=== PATIENT | female | born 1940 | race American Indian/Alaskan Native ===

== ENCOUNTER 2017-11-19 05:17 | Emergency (ER) | payer MEDICARE ==
[2017-11-19 06:55] LABS: Hematocrit 30.7 % (30.3-42.9); Mean Corpuscular HGB Conc 33 % (30-34); Mean Corpuscular Hemoglobin 28 pg (28-32); Mean Corpuscular Volume 87 fl (79-97); Platelet Count 182 K/mm3 (140-440); Red Blood Count 3.53 M/mm3 (3.65-5.03); Red Cell Distribution Width 17.5 % (13.2-15.2)
[2017-11-19 07:10] LABS: BUN/Creatinine Ratio 15; Blood Urea Nitrogen 15 mg/dL (7-17); Calcium 9.4 mg/dL (8.4-10.2); Hemolysis Index 47
[2017-11-19] MEDS ORDERED: KEPPRA PO ONE (07:22)
[2017-11-19] MEDS ORDERED: ATIVAN IM PRN (07:29)
--- NOTE | 2017-11-19 07:30 | Emergency Department Report ---
ED General Adult HPI - General Chief complaint: Seizure Stated complaint: SEIZURE Time Seen by Provider: 11/19/17 06:50 Source: patient, EMS (ems notes not available at time of chart dictation), RN notes reviewed, old records reviewed Mode of arrival: Stretcher Limitations: Other (patient disorganized. Patient is a poor historian.) - History of Present Illness Initial comments: This is a 77-year-old female. The patient is not known to this provider previously. 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 Patient is sent to the ER today from her local psychiatric facility for evaluation of a possible seizure. As per enclosed documentation, patient was standing in the doorway, and she was witnessed to fall back on the wall, hitting the back of her head. Patient was also noticed to be shaking uncontrollably. It is also documented that during this event the patient stated "I have seizures." Patient was given Ativan 1 mg 1, and was sent to the ER for evaluation for possible seizures. The patient is a very poor historian, and has no recollection of the events, she cannot describe exacerbating or relieving factors. Of note, patient had a prolonged stay in this hospital recently, and had prolonged observation. Please see her most recent discharge summary, and her progress notes from her recent hospitalization. The patient currently denies headache, neck pain, chest pain, abdominal pain, shortness of breath, urinary symptoms. She denies muscular weakness. She is very disorganized, and can therefore not describe radiation, exacerbating or relieving factors. -: Sudden Severity scale (0 -10): 0 Quality: other Consistency: other Improves with: other Worsens with: other Associated Symptoms: seizure, other - Related Data Home Medications Medication Instructions Recorded Confirmed Last Taken Amlodipine Besylate [Norvasc] 5 mg PO QAM 11/10/17 11/19/17 1 Day Ago ~11/18/17 Atorvastatin Calcium [Lipitor] 20 mg PO HS 11/10/17 11/19/17 1 Day Ago ~11/18/17 Meloxicam [Mobic] 15 mg PO QAM 11/10/17 11/19/17 1 Day Ago ~11/18/17 Pantoprazole [Protonix TAB] 20 mg PO QDAY 11/10/17 11/19/17 1 Day Ago ~11/18/17 risperiDONE [RisperDAL] 1 mg PO BID 11/10/17 11/19/17 1 Day Ago ~11/18/17 OLANZapine [Zyprexa] 5 mg PO QHS 11/19/17 11/19/17 Unknown clonazePAM [Klonopin] 1 mg PO BID 11/19/17 11/19/17 1 Day Ago ~11/18/17 levETIRAcetam [Keppra TAB] 750 mg PO BID 11/19/17 11/19/17 1 Day Ago ~11/18/17 Allergies Allergy/AdvReac Type Severity Reaction Status Date / Time Penicillins Allergy Unknown Verified 11/10/17 10:51 ED Review of Systems ROS: Stated complaint: SEIZURE Other details as noted in HPI Comment: Unobtainable due to pts medical conditions (the patient is a poor historian) ED Past Medical Hx - Past Medical History Hx Hypertension: Yes Hx GERD: Yes Hx Seizures: Yes Hx Psychiatric Treatment: Yes Additional medical history: High Cholesterol - Social History Smoking Status: Never Smoker Substance Use Type: None - Medications Home Medications: Home Medications Medication Instructions Recorded Confirmed Last Taken Type Amlodipine Besylate [Norvasc] 5 mg PO QAM 11/10/17 11/19/17 1 Day Ago History ~11/18/17 Atorvastatin Calcium [Lipitor] 20 mg PO HS 11/10/17 11/19/17 1 Day Ago History ~11/18/17 Meloxicam [Mobic] 15 mg PO QAM 11/10/17 11/19/17 1 Day Ago History ~11/18/17 Pantoprazole [Protonix TAB] 20 mg PO QDAY 11/10/17 11/19/17 1 Day Ago History ~11/18/17 risperiDONE [RisperDAL] 1 mg PO BID 11/10/17 11/19/17 1 Day Ago History ~11/18/17 OLANZapine [Zyprexa] 5 mg PO QHS 11/19/17 11/19/17 Unknown History clonazePAM [Klonopin] 1 mg PO BID 11/19/17 11/19/17 1 Day Ago History ~11/18/17 levETIRAcetam [Keppra TAB] 750 mg PO BID 11/19/17 11/19/17 1 Day Ago History ~11/18/17 ED Physical Exam - General Limitations: Other (psychiatrically disorganized) General appearance: alert, in no apparent distress - Head Head exam: Present: atraumatic, normocephalic - Eye Eye exam: Present: EOMI. Absent: normal appearance (bilateral arcus seniilis) - ENT ENT exam: Present: normal exam, normal orophraynx, mucous membranes moist, normal external ear exam - Neck Neck exam: Present: normal inspection, full ROM - Respiratory Respiratory exam: Present: normal lung sounds bilaterally. Absent: respiratory distress - Cardiovascular Cardiovascular Exam: Present: regular rate, normal rhythm, normal heart sounds. Absent: bradycardia, tachycardia, irregular rhythm, systolic murmur, diastolic murmur, rubs, gallop - GI/Abdominal GI/Abdominal exam: Present: soft. Absent: distended, tenderness, guarding, rebound, rigid, pulsatile mass - Extremities Exam Extremities exam: Present: normal inspection, full ROM, normal capillary refill , other (2+ pulses noted in the bilateral upper, lower extremities. Compartments soft. No long bony tenderness. The pelvis is stable.). Absent: tenderness, pedal edema, joint swelling, calf tenderness - Back Exam Back exam: Present: normal inspection, full ROM. Absent: tenderness, CVA tenderness (R), paraspinal tenderness, vertebral tenderness - Neurological Exam Neurological exam: Present: alert, CN II-XII intact, normal gait, other ( Extraocular movements intact. Tongue midline. No facial droop. Facial sensation intact to light touch in the V1, V2, V3 distribution bilaterally. 5 and 5 strength in 4 extremities.. Sensation is intact to light touch in 4 extremities.). Absent: motor sensory deficit - Psychiatric Psychiatric exam: Present: anxious - Skin Skin exam: Present: warm, dry, intact, normal color. Absent: rash ED Course Vital Signs 11/19/17 11/19/17 11/19/17 05:51 07:16 09:22 Temperature 98.3 F Pulse Rate 79 71 Respiratory 16 16 18 Rate Blood Pressure 135/91 160/70 [Left] O2 Sat by Pulse 96 98 100 Oximetry ED Medical Decision Making - Lab Data Result diagrams: 11/19/17 06:28 11/19/17 06:28 Vital Signs 11/19/17 11/19/17 11/19/17 05:51 07:16 09:22 Temperature 98.3 F Pulse Rate 79 71 Respiratory 16 16 18 Rate Blood Pressure 135/91 160/70 [Left] O2 Sat by Pulse 96 98 100 Oximetry Lab Results 11/19/17 11/19/17 11/19/17 Range/Units 06:28 06:28 06:55 WBC 3.6 L (4.5-11.0) K/mm3 RBC 3.53 L (3.65-5.03) M/mm3 Hgb 10.0 L (10.1-14.3) gm/dl Hct 30.7 (30.3-42.9) % MCV 87 (79-97) fl MCH 28 (28-32) pg MCHC 33 (30-34) % RDW 17.5 H (13.2-15.2) % Plt Count 182 (140-440) K/mm3 Sodium 136 L (137-145) mmol/L Potassium 4.8 (3.6-5.0) mmol/L Chloride 98.5 (98-107) mmol/L Carbon Dioxide 24 (22-30) mmol/L Anion Gap 18 mmol/L BUN 15 (7-17) mg/dL Creatinine 1.0 (0.7-1.2) mg/dL Estimated GFR > 60 ml/min BUN/Creatinine Ratio 15 % Glucose 80 (65-100) mg/dL Calcium 9.4 (8.4-10.2) mg/dL Total Creatine Kinase (30-135) units/L Urine Color Straw (Yellow) Urine Turbidity Clear (Clear) Urine pH 7.0 (5.0-7.0) Ur Specific [place] 1.006 (1.003-1.030) Urine Protein <15 mg/dl (Negative) mg/dL Urine Glucose (UA) Neg (Negative) mg/dL Urine Ketones Neg (Negative) mg/dL Urine Blood Sm (Negative) Urine Nitrite Neg (Negative) Urine Bilirubin Neg (Negative) Urine Urobilinogen < 2.0 (<2.0) mg/dL Ur Leukocyte Esterase Tr (Negative) Urine WBC (Auto) < 1.0 (0.0-6.0) /HPF Urine RBC (Auto) 2.0 (0.0-6.0) /HPF U Epithel Cells (Auto) 1.0 (0-13.0) /HPF Urine Bacteria (Auto) 1+ (Negative) /HPF 09/26/18 Range/Units 07:25 WBC (4.5-11.0) K/mm3 RBC (3.65-5.03) M/mm3 Hgb (10.1-14.3) gm/dl Hct (30.3-42.9) % MCV (79-97) fl MCH (28-32) pg MCHC (30-34) % RDW (13.2-15.2) % Plt Count (140-440) K/mm3 Sodium (137-145) mmol/L Potassium (3.6-5.0) mmol/L Chloride (98-107) mmol/L Carbon Dioxide (22-30) mmol/L Anion Gap mmol/L BUN (7-17) mg/dL Creatinine (0.7-1.2) mg/dL Estimated GFR ml/min BUN/Creatinine Ratio % Glucose (65-100) mg/dL Calcium (8.4-10.2) mg/dL Total Creatine Kinase 385 H (30-135) units/L Urine Color (Yellow) Urine Turbidity (Clear) Urine pH (5.0-7.0) Ur Specific [place] (1.003-1.030) Urine Protein (Negative) mg/dL Urine Glucose (UA) (Negative) mg/dL Urine Ketones (Negative) mg/dL Urine Blood (Negative) Urine Nitrite (Negative) Urine Bilirubin (Negative) Urine Urobilinogen (<2.0) mg/dL Ur Leukocyte Esterase (Negative) Urine WBC (Auto) (0.0-6.0) /HPF Urine RBC (Auto) (0.0-6.0) /HPF U Epithel Cells (Auto) (0-13.0) /HPF Urine Bacteria (Auto) (Negative) /HPF - EKG Data -: EKG Interpreted by Dc EKG shows normal: sinus rhythm, axis, intervals, QRS complexes, ST-T waves - EKG Data When compared to previous EKG there are: no significant change 11/19/17 09:29 Sinus, 70 bpm, motion artifact, normal axis, normal intervals, high left ventricular voltage, not a STEMI, appears unchanged from prior from 11/10/2017 - Radiology Data Radiology results: report reviewed, image reviewed X-ray of the chest is negative for acute disease. CT scan of the abdomen and pelvis is negative for acute disease. - Medical Decision Making Differential diagnosis, including but not limited to: Seizure, psychogenic seizure, intracranial injury, pneumonia, urinary tract infection Assessment and plan: 77-year-old female sent to the ER for evaluation for possible convulsive event. It is documented that she is speaking during this event. Patient has been observed in the ER for many hours without recurrent convulsive event. She is walking around the department without distress, her laboratory studies do not demonstrate any emergent abnormality, x-ray the chest is unremarkable, CT scan of the brain is unremarkable. The patient may continue her outpatient medications, and she can follow up with outpatient neurology. Critical care attestation.: If time is entered above; I have spent that time in minutes in the direct care of this critically ill patient, excluding procedure time. ED Disposition Clinical Impression: History of convulsions Disposition: DC/TX-65 PSY HOSP/PSY UNIT Is pt being admited?: No Does the pt Need Aspirin: No Condition: Stable Instructions: Recurrent Seizures Adult (ED) Additional Instructions: Do not drive or operate motor vehicles for the next 6 months. Follow up with an outpatient neurologist as soon as possible Continue outpatient medications, with the exception of amitriptyline and Risperdal, return to the ER right away with lethargy, irritability, projectile vomiting, change in mental status, confusion, recurrent convulsive event. Please consider discontinuing or changing both amitriptyline and Risperdal, as these medications may decrease seizure threshold. We would defer to the psychiatric team for alternative recommendations for psychiatric medications that will not change or decrease seizure threshold. Referrals: XIOMARA MORELOS MD [Referring] - 3-5 Days LOU LEOS MD [Staff Physician] - 3-5 Days PATRIZIA JONES MD [Staff Physician] - 3-5 Days
[2017-11-19 07:45] LABS: Bacteria,Urine 1+ /HPF (Negative); Bilirubin,Urine NEG (Negative); Blood,Urine SM (Negative); Color,Urine Straw (Yellow); Protein,Urine <15 mg/dL mg/dL (Negative); Urobilinogen,Urine < 2.0 mg/dL (<2.0)
[2017-11-19 08:08] LABS: WBC,Urine < 1.0 /HPF (0.0-6.0)
[2017-11-19] MEDS ORDERED: KEPPRA 1,000 MG/NS 0.75% 100ML 1,000 MG/100 ML BAG IV ONE ×2 (08:12→08:50)
--- NOTE | 2017-11-19 08:29 | XRay Report ---
PORTABLE CHEST INDICATION: Breakthrough seizure. Questionable pneumonia. COMPARISON: 11/10/2017 FINDINGS: Portable, frontal chest radiograph demonstrate stable cardiomediastinal silhouette/borderline cardiomegaly as also somewhat prominent aortic knob. Aortic atherosclerotic calcifications and approximately 3.5 cm left hemidiaphragmatic eventration medially/juxtaphrenic peak again noted. Otherwise clear lungs. Stable bony degenerative changes. CONCLUSION: No definite acute chest process with few other findings, as above. Please correlate. Thank you for the opportunity to participate in this patient's care.
--- NOTE | 2017-11-19 09:05 | Cat Scan Report ---
CT HEAD WITHOUT CONTRAST INDICATION: Focal seizure, facial twitching. COMPARISON: 11/10/2017. FINDINGS: Noncontrast head CT demonstrates stable, age-appropriate, symmetric ventricles and sulci, mild periventricular hypodensities and few benign bilateral basal ganglia calcifications. Bifrontal extra-axial CSF spaces again measure up to approximately 6-7 mm, axial series 3, image 43. No definite acute infarct, hemorrhage, mass effect or midline shift. Grossly normal posterior fossa with preserved basilar cisterns. Symmetric eye globes. Old left orbital floor fracture again noted. Clear imaged paranasal sinuses and mastoid air cells. Atherosclerotic ICA calcifications. Normal calvarium and scalp. Streak artifact from anterior radiopaque dental material noted within the rest of jaw edentulous. Mild cervical spondylosis. CONCLUSION: Age-appropriate atrophy and microvascular changes again noted without acute intracranial CT abnormality or significant interval change, as described. Thank you for the opportunity to participate in this patient's care.
[2017-11-19 09:23] VITALS: BP 160/70
== END 2017-11-19 11:43 ==
LOC: ED 05:17
DX: R56.9 Unspecified convulsions (principal); I10 Essential (primary) hypertension; K21.9 Gastro-esophageal reflux disease without esophagitis; E78.00 Pure hypercholesterolemia, unspecified; Z88.0 Allergy status to penicillin
CPT/HCPCS: 36415; 70450; 71045; 80048; 81001; 82550; 85027; 93005; 93010; 96365; 96372; 99285; J1953; J2060

== ENCOUNTER 2017-11-21 17:55 | Emergency (ER) | payer MEDICARE ==
[2017-11-21] MEDS ORDERED: NORVASC PO ONE (19:19)
[2017-11-21] MEDS ORDERED: KEPPRA PO ONE (19:19)
--- NOTE | 2017-11-21 19:19 | Emergency Department Report ---
HPI - General Chief Complaint: Fall Time Seen by Provider: 11/21/17 18:31 - HPI HPI: Patient presents to the emergency department from [facility], where she has a involuntary admission for psychosis, with the complaint of having some seizure-like activity and being found on the floor in the day room this afternoon. The patient herself is awake and has no complaints but does display some of this psychosis. However she is oriented to person, place and time. She was seen here 2 days ago after she had a fall at that time. Unknown if that was due to seizure-like activity. She had a negative CT head and some negative and/or unremarkable blood work at that time. The patient has a past medical history of a seizure disorder, hypertension, GERD, hypercholesterolemia. It is unknown whether or not the patient is getting seizure medication but there is a listing that she takes Keppra. ED Past Medical Hx - Past Medical History Hx Hypertension: Yes Hx GERD: Yes Hx Seizures: Yes Hx Psychiatric Treatment: Yes Additional medical history: High Cholesterol - Social History Smoking Status: Former Smoker Substance Use Type: None - Medications Home Medications: Home Medications Medication Instructions Recorded Confirmed Last Taken Type Amlodipine Besylate [Norvasc] 5 mg PO QAM 11/10/17 11/19/17 1 Day Ago History ~11/18/17 Atorvastatin Calcium [Lipitor] 20 mg PO HS 11/10/17 11/19/17 1 Day Ago History ~11/18/17 Meloxicam [Mobic] 15 mg PO QAM 11/10/17 11/19/17 1 Day Ago History ~11/18/17 Pantoprazole [Protonix TAB] 20 mg PO QDAY 11/10/17 11/19/17 1 Day Ago History ~11/18/17 risperiDONE [RisperDAL] 1 mg PO BID 11/10/17 11/19/17 1 Day Ago History ~11/18/17 OLANZapine [Zyprexa] 5 mg PO QHS 11/19/17 11/19/17 Unknown History clonazePAM [Klonopin] 1 mg PO BID 11/19/17 11/19/17 1 Day Ago History ~11/18/17 levETIRAcetam [Keppra TAB] 750 mg PO BID 11/19/17 11/19/17 1 Day Ago History ~11/18/17 ED Review of Systems ROS: Stated complaint: FALL Other details as noted in HPI Comment: All other systems reviewed and negative Constitutional: denies: chills, fever Eyes: denies: eye pain, eye discharge, vision change ENT: denies: ear pain, throat pain Respiratory: denies: cough, shortness of breath, wheezing Cardiovascular: denies: chest pain, palpitations Gastrointestinal: denies: abdominal pain, nausea, diarrhea Genitourinary: denies: urgency, dysuria, discharge Musculoskeletal: denies: back pain, joint swelling, arthralgia Skin: denies: rash, lesions Neurological: confusion. denies: headache Physical Exam - Physical Exam Vital Signs: Vital Signs 11/21/17 11/21/17 11/21/17 18:23 18:25 18:27 Pulse Rate 94 H 86 Respiratory 14 18 19 Rate Blood Pressure 173/91 173/91 O2 Sat by Pulse 97 98 Oximetry Physical Exam: GENERAL: The patient is well-developed well-nourished. HENT: Normocephalic. Atraumatic. Patient has moist mucous membranes. EYES: Extraocular motions are intact. Pupils equal reactive to light bilaterally. NECK: Supple. Trachea is midline. CHEST/LUNGS: Clear to auscultation. There is no respiratory distress noted. HEART/CARDIOVASCULAR: Regular. There is no tachycardia. There is no murmur. ABDOMEN: Abdomen is soft, nontender. Patient has normal bowel sounds. There is no abdominal distention. SKIN: Skin is warm and dry. NEURO: The patient is awake, alert and mostly cooperative. The patient has no focal neurologic deficits. The patient has normal speech. Cranial nerves II through XII grossly intact.. MUSCULOSKELETAL: There is no tenderness or deformity. There is no limitation range of motion. There is no evidence of acute injury. PSYCH: The patient has some occasional pressured speech and some tangential thoughts but is usually redirectable ED Course Vital Signs 11/21/17 11/21/17 11/21/17 18:23 18:25 18:27 Pulse Rate 94 H 86 Respiratory 14 18 19 Rate Blood Pressure 173/91 173/91 O2 Sat by Pulse 97 98 Oximetry ED Medical Decision Making - Lab Data Result diagrams: 11/21/17 19:24 11/21/17 19:24 - EKG Data -: EKG Interpreted by Me EKG shows normal: sinus rhythm, axis, intervals, QRS complexes, ST-T waves ( nonspecific T-wave changes) Rate: normal - EKG Data When compared to previous EKG there are: no significant change Interpretation: unchanged when compared t (11/19/17) - Medical Decision Making Patient was brought in from [place] after she was found on the ground in the day room. It is unknown whether or not the patient was witnessed to have any seizure or seizure-like activity but she does have a history of a seizure disorder. The patient was here 2 days ago for similar symptoms and/or concerns. She had a CT scan of the head at that time which I reviewed today and it did not show any bleed, shift, mass, ischemia or any acute process. It showed some age-related microvascular changes. The patient is currently awake and oriented to person, place and time. She does show some occasional pressured speech and/or tangential thoughts but she is mostly redirectable. The patient has no complaints at this time. An EKG was done that did not show any signs of ST elevation NC or significant dysrhythmia. Labs did not show any signs of infection, electrolyte abnormalities, renal insufficiency or glucose abnormalities. Patient's vital signs and stable throughout her ED course. She was reevaluated multiple times for multiple hours and there has been no seizure- like activity. Prior to discharge, the patient was seen ambulatory within the emergency department and appeared stable while doing so. For all these reasons patient appears safe for discharge back to her psychiatric facility. They have been encouraged to make sure that she is getting her appropriate seizure medication. She has been encouraged to see her primary care physician once she is able to do so and on that note I also gave her a referral for neurology. They were instructed to bring her back to the emergency department with any further episodes of seizure, any concerns or with any acute distress. - Differential Diagnosis dysrythmia, electrolyte abnormalities, epilepsy, psychosis Critical Care Time: No Critical care attestation.: If time is entered above; I have spent that time in minutes in the direct care of this critically ill patient, excluding procedure time. ED Disposition Clinical Impression: Seizure disorder, Medical clearance for psychiatric admission, Hypertension Disposition: DC/TX-65 PSY HOSP/PSY UNIT Is pt being admited?: No Condition: Stable Instructions: Recurrent Seizures Adult (ED), Hypertension (ED) Additional Instructions: Please make sure that this patient is receiving her seizure medications. You should follow-up with your primary care physician and/or neurologist when you are done at [facility]. Return to the emergency department with any recurrence of your seizures, worsening of your symptoms, or with any acute distress. I have given her a referral for a local neurologist, Dr. Ferraro, to follow up with once you're able to do so. Referrals: PRIMARY CARE, [Primary Care Provider] - PATRIZIA MILLAN MD [Staff Physician] - [facility] Time of Disposition: 20:53
[2017-11-21 19:42] LABS: Basophils % (Auto) 1.1 % (0.0-1.8); Eosinophils # (Auto) 0.1 K/mm3 (0.0-0.4); Eosinophils % (Auto) 2.8 % (0.0-4.3); Hematocrit 33.2 % (30.3-42.9); Hemoglobin 10.8 gm/dl (10.1-14.3); Lymphocytes # (Auto) 1.2 K/mm3 (1.2-5.4); Lymphocytes % (Auto) 37.4 % (13.4-35.0); Mean Corpuscular HGB Conc 33 % (30-34); Mean Corpuscular Hemoglobin 28 pg (28-32); Mean Corpuscular Volume 87 fl (79-97); Monocytes # (Auto) 0.3 K/mm3 (0.0-0.8); Monocytes % (Auto) 8.5 % (0.0-7.3); Platelet Count 203 K/mm3 (140-440); Red Blood Count 3.81 M/mm3 (3.65-5.03); Red Cell Distribution Width 17.5 % (13.2-15.2)
[2017-11-21 20:03] LABS: Alanine Aminotransferase 14 units/L (7-56); Albumin 4.6 g/dL (3.9-5); BUN/Creatinine Ratio 22; Blood Urea Nitrogen 20 mg/dL (7-17); Calcium 9.5 mg/dL (8.4-10.2); Hemolysis Index 34
[2017-11-21 20:52] VITALS: BP 173/91
== END 2017-11-22 01:20 ==
LOC: ED 17:55
DX: G40.909 Epilepsy, unspecified, not intractable, without status epilepticus (principal); I10 Essential (primary) hypertension; K21.9 Gastro-esophageal reflux disease without esophagitis; E78.00 Pure hypercholesterolemia, unspecified; Z87.891 Personal history of nicotine dependence; Z88.0 Allergy status to penicillin
CPT/HCPCS: 36415; 80053; 82550; 84484; 85025; 93005; 93010; 99284